=== PATIENT | male | born 1935 | race Caucasian/White ===

== ENCOUNTER → 2017-03-16 | Outpatient (CLI) | payer MEDICARE | LOC: RAD 10:35 | DX: M54.5 Low back pain (principal); M99.73 Connective tissue and disc stenosis of intervertebral foramina of lumbar region | CPT/HCPCS: 72110 ==

== ENCOUNTER → 2021-01-19 | Outpatient (CLI) | payer MEDICARE, SELFPAY ==
[~2021-01-19] MED LIST: ASPIRIN EC81 MG PO; ATORVASTATIN CA20 MG PO; CLOPIDOGREL75 MG PO; JANUMET 50-1,01 EACH PO; LISINOPRIL2.5 MG PO; LISINOPRIL5 MG PO; VITAMIN B-121000 MC3 SL; VITAMIN D250 MCG PO
== END ==
LOC: EXRD 13:17
DX: M25.561 Pain in right knee (principal); M25.562 Pain in left knee; E55.9 Vitamin D deficiency, unspecified; M17.0 Bilateral primary osteoarthritis of knee
CPT/HCPCS: 73564

== ENCOUNTER → 2021-03-24 | Outpatient (CLI) | payer MEDICARE, SELFPAY | LOC: RAD 09:49 | DX: Z12.11 Encounter for screening for malignant neoplasm of colon (principal) | CPT/HCPCS: 74270 ==

== ENCOUNTER 2021-03-31 11:17 | Observation (INO) | payer MEDICARE, OTHER ==
[~2021-03-31] VITALS: Ht 175.3 cm; Wt 80.3 kg
[2021-03-31 12:00] LABS: HEMOGLOBIN 12.6 gm/dl (14.0-17.5); RED BLOOD COUNT 4.14 M/UL (4.20-5.50)
[2021-03-31 12:30] LABS: BUN/CREATININE RATIO 13 (0-10)
[2021-03-31] MEDS ORDERED: VITAMIN D250 MCG PO (16:19)
[2021-03-31] MEDS ORDERED: JANUMET 50-1,01 EACH PO (16:19)
[2021-03-31] MEDS ORDERED: VITAMIN B-121000 MC3 SL (16:20)
[2021-04-01 04:51] LABS: HEMOGLOBIN 12.2 gm/dl (14.0-17.5); RED BLOOD COUNT 4.06 M/UL (4.20-5.50); WHITE BLOOD COUNT 4.7 K/UL (4.5-11.0)
[2021-04-01 07:02] LABS: BUN/CREATININE RATIO 15 (0-10)
[2021-04-01] MEDS ORDERED: ATORVASTATIN CA20 MG PO (10:19)
[2021-04-01] MEDS ORDERED: ASPIRIN EC81 MG PO (10:19)
[2021-04-01] MEDS ORDERED: LISINOPRIL2.5 MG PO (10:19)
== END 2021-04-01 17:06 | disposition home or self-care (01) ==
LOC: ER1 11:17 → CDU 15:11 → M/S 15:11 → ZEROF 04-01 14:54 → M/S 04-01 14:54
PROVIDERS: Physician Assistant; Physician Assistant Medical; ADMIT Internal Medicine
DX: I63.9 Cerebral infarction, unspecified (principal); G83.11 Monoplegia of lower limb affecting right dominant side; E11.9 Type 2 diabetes mellitus without complications; I10 Essential (primary) hypertension; E78.5 Hyperlipidemia, unspecified; E55.9 Vitamin D deficiency, unspecified; E53.8 Deficiency of other specified B group vitamins; R00.1 Bradycardia, unspecified; M75.101 Unspecified rotator cuff tear or rupture of right shoulder, not specified as traumatic; Z79.84 Long term (current) use of oral hypoglycemic drugs; Z79.899 Other long term (current) drug therapy; Z20.822 Contact with and (suspected) exposure to COVID-19
CPT/HCPCS: 70450; 70551; 71045; 80048; 80053; 80061; 81001; 82550; 82553; 82962; 83036; 83735; 83874; 84484; 85025; 85027; 93005; 93880; 97162; 97166; 99285; G0378; U0002

== ENCOUNTER 2021-05-24 23:33 | Inpatient (IN) | payer MEDICARE ==
[~2021-05-24] VITALS: Ht 175.3 cm; Wt 79.4 kg
[~2021-05-24 23:33] MED LIST changes: -CLOPIDOGREL75 MG PO; -LISINOPRIL5 MG PO
[2021-05-25 00:23] LABS: HEMOGLOBIN 13.4 gm/dl (14.0-17.5); RED BLOOD COUNT 4.43 M/UL (4.20-5.50); WHITE BLOOD COUNT 6.2 K/UL (4.5-11.0)
[2021-05-25 00:29] LABS: BUN/CREATININE RATIO 15 (0-10)
[2021-05-28 02:15] LABS: HEMOGLOBIN 13.3 gm/dl (14.0-17.5); RED BLOOD COUNT 4.32 M/UL (4.20-5.50); WHITE BLOOD COUNT 6.1 K/UL (4.5-11.0)
[2021-05-28 02:32] LABS: BUN/CREATININE RATIO 19 (0-10)
[2021-05-30] MEDS ORDERED: CLOPIDOGREL75 MG PO (17:00)
[2021-05-30] MEDS ORDERED: LISINOPRIL5 MG PO (17:00)
== END 2021-05-31 15:16 | DRG 65 ==
LOC: ER1 23:33 → CDU 05-25 03:04 → M/S 05-25 15:04
PROVIDERS: Physician Assistant; ADMIT Internal Medicine
PROC: B24BZZ4 Ultrasonography of Heart with Aorta, Transesophageal (ICD-10-PCS; principal; 2021-05-26)
DX: I63.531 Cerebral infarction due to unspecified occlusion or stenosis of right posterior cerebral artery (principal); I69.354 Hemiplegia and hemiparesis following cerebral infarction affecting left non-dominant side; I67.82 Cerebral ischemia; Z20.822 Contact with and (suspected) exposure to COVID-19; I10 Essential (primary) hypertension; E11.9 Type 2 diabetes mellitus without complications; Z79.82 Long term (current) use of aspirin; Z80.3 Family history of malignant neoplasm of breast
CPT/HCPCS: 36415; 70450; 70496; 70498; 70551; 71045; 80048; 80053; 81001; 82550; 82553; 82962; 83874; 83880; 84484; 85025; 85610; 85730; 93005; 93312; 93320; 97110; 97110-GP-CQ; 97116-GP-CQ; 97163; 97167; 97530; 97535; 99285; G0378; J1200; J1650; J2250; J2310; J3010; Q9965; U0002

== ENCOUNTER → 2021-08-29 | Outpatient (CLI) | payer MEDICARE ==
[~2021-08-29] MED LIST changes: +CLOPIDOGREL75 MG PO; +LISINOPRIL5 MG PO
== END ==
LOC: EMI 13:41
DX: I63.9 Cerebral infarction, unspecified (principal); I67.82 Cerebral ischemia
CPT/HCPCS: 70551

== ENCOUNTER 2021-12-14 18:46 | Emergency (ER) | payer MEDICARE ==
[2021-12-14 19:56] LABS: HEMOGLOBIN 12.3 gm/dl (14.0-17.5); RED BLOOD COUNT 4.05 M/UL (4.20-5.50); WHITE BLOOD COUNT 7.8 K/UL (4.5-11.0)
[2021-12-14 20:51] LABS: BUN/CREATININE RATIO 16 (0-10)
[2021-12-15] MEDS ORDERED: ZOFRAN ODT 4 MG4 MG SL (00:38)
== END 2021-12-15 00:49 | disposition home or self-care (01) ==
LOC: ER1 18:46
PROVIDERS: Emergency Medicine
DX: U07.1 COVID-19 (principal)
CPT/HCPCS: 0240U; 36600; 70450; 71045; 80053; 81001; 82803; 83605; 83735; 84100; 85025; 87040; 87086; 96374; 99285; J2405